=== PATIENT | male | born 1960 | race Caucasian/White ===

== ENCOUNTER → 2017-08-26 | Outpatient (CLI) | payer OTHER ==
[~2017-08-26] MED LIST: ACETAMINOPHEN-1 EAC1 PO; ALEVE PM CAPLE1 EACH PO; ALLOPURINOL 10100 M2 PO; ASPIRIN325 PO; CALCIUM 500 +1 EAC5 PO; GARLIC1 EACH PO; HYDROCODONE-AP1 EAC6 PO; SPECIAL C 5001 EACH PO; TESTOSTERONE5 GM MC; ULTRAM 50MG TAB50 MG PO
== END ==
LOC: M.CT 09:07
DX: K57.90 Diverticulosis of intestine, part unspecified, without perforation or abscess without bleeding (principal); K76.0 Fatty (change of) liver, not elsewhere classified; K40.20 Bilateral inguinal hernia, without obstruction or gangrene, not specified as recurrent; M47.897 Other spondylosis, lumbosacral region